=== PATIENT | male | born 1950 | race Caucasian/White ===

== ENCOUNTER → 2023-05-27 07:58 | Outpatient (REF) | payer MEDICARE, BC, SELFPAY ==
[2023-05-27 14:09] LABS: TSH 2.55 uIU/ml (0.47-4.68)
[2023-05-27 14:16] LABS: ALT (SGPT) 24 U/L (0-50); AST (SGOT) 23 U/L (17-59); Albumin 4.1 g/dl (3.5-5.0); Alkaline Phosphatase 84 U/L (38-126); Blood Urea Nitrogen 34 mg/dl (9-20); Calcium 9.7 mg/dl (8.4-10.2); Carbon Dioxide 26 mmol/L (22-30); Chloride 104 mmol/L (98-107); Glucose 179 mg/dl (70-99); HDL Cholesterol 53 mg/dl; LDL Cholesterol, Calculated 70 mg/dl; Potassium 4.6 mmol/L (3.5-5.1); Sodium 136 mmol/L (135-145); Total Bilirubin 1.6 mg/dl (0.2-1.3); Total Cholesterol 142 mg/dl (50-199); Total Protein 6.7 g/dl (6.3-8.2); Triglyceride 99 mg/dl (10-149); Very Low Density Lipoprotein 19 mg/dl (0-30); eGFR > 60.00
[2023-05-27 14:17] LABS: Glycohemoglobin (HgbA1c) 7.6 % (4.0-5.6)
[2023-05-27 21:04] LABS: Microalbumin, Random Urine 44.7 mg/dl (0.6-1.7); Microalbumin/creatinine Ratio 558.1 mg/g
== END ==
LOC: HWLAB 07:58
PROVIDERS: ATTENDING PHYSICIAN Internal Medicine Endocrinology, Diabetes & Metabolism; FAMILY PHYSICIAN Internal Medicine
DX: E10.65 Type 1 diabetes mellitus with hyperglycemia (principal)
CPT/HCPCS: 36415; 80053; 80061; 82043; 82570; 83036; 84443

== ENCOUNTER → 2023-08-31 07:39 | Outpatient (REF) | payer MEDICARE, BC, SELFPAY ==
[2023-08-31 09:34] LABS: ALT (SGPT) 24 U/L (0-50); AST (SGOT) 26 U/L (17-59); Albumin 4.2 g/dl (3.5-5.0); Alkaline Phosphatase 85 U/L (38-126); Blood Urea Nitrogen 38 mg/dl (9-20); Carbon Dioxide 22 mmol/L (22-30); Chloride 106 mmol/L (98-107); Glucose 196 mg/dl (70-99); HDL Cholesterol 45 mg/dl; LDL Cholesterol, Calculated 67 mg/dl; Potassium 4.5 mmol/L (3.5-5.1); Sodium 137 mmol/L (135-145); Total Bilirubin 1.4 mg/dl (0.2-1.3); Total Cholesterol 135 mg/dl (50-199); Total Protein 6.6 g/dl (6.3-8.2); Triglyceride 119 mg/dl (10-149); Very Low Density Lipoprotein 23 mg/dl (0-30); eGFR 53.07
[2023-08-31 11:06] LABS: Glycohemoglobin (HgbA1c) 7.4 % (4.0-5.6)
[2023-09-03 02:09] LABS: C-Peptide <0.1 ng/mL (0.5-3.3)
== END ==
LOC: REG 07:39
PROVIDERS: ATTENDING PHYSICIAN Internal Medicine Endocrinology, Diabetes & Metabolism; FAMILY PHYSICIAN Internal Medicine
DX: E10.65 Type 1 diabetes mellitus with hyperglycemia (principal); E78.5 Hyperlipidemia, unspecified
CPT/HCPCS: 36415; 80053; 80061; 83036; 84681

== ENCOUNTER → 2023-11-27 08:58 | Outpatient (REF) | payer MEDICARE, BC, SELFPAY ==
[2023-11-27 13:51] LABS: ALT (SGPT) 23 U/L (0-50); AST (SGOT) 24 U/L (17-59); Albumin 4.1 g/dl (3.5-5.0); Alkaline Phosphatase 67 U/L (38-126); Blood Urea Nitrogen 34 mg/dl (9-20); Calcium 9.8 mg/dl (8.4-10.2); Carbon Dioxide 25 mmol/L (22-30); Chloride 106 mmol/L (98-107); Glucose 107 mg/dl (70-99); HDL Cholesterol 58 mg/dl; LDL Cholesterol, Calculated 75 mg/dl; Potassium 4.5 mmol/L (3.5-5.1); Sodium 142 mmol/L (135-145); Total Bilirubin 1.6 mg/dl (0.2-1.3); Total Cholesterol 145 mg/dl (50-199); Total Protein 6.6 g/dl (6.3-8.2); Triglyceride 64 mg/dl (10-149); Very Low Density Lipoprotein 12 mg/dl (0-30); eGFR 58.01
[2023-11-27 14:05] LABS: Glycohemoglobin (HgbA1c) 6.7 % (4.0-5.6)
== END ==
LOC: HWLAB 08:58
PROVIDERS: ATTENDING PHYSICIAN Internal Medicine Endocrinology, Diabetes & Metabolism; FAMILY PHYSICIAN Internal Medicine
DX: E10.65 Type 1 diabetes mellitus with hyperglycemia (principal)
CPT/HCPCS: 36415; 80053; 80061; 83036

== ENCOUNTER → 2024-02-28 07:44 | Outpatient (REF) | payer MEDICARE, BC, SELFPAY ==
[2024-02-28 11:00] LABS: ALT (SGPT) 27 U/L (0-50); AST (SGOT) 27 U/L (17-59); Albumin 4.4 g/dl (3.5-5.0); Alkaline Phosphatase 75 U/L (38-126); Blood Urea Nitrogen 39 mg/dl (9-20); Calcium 9.9 mg/dl (8.4-10.2); Carbon Dioxide 24 mmol/L (22-30); Chloride 105 mmol/L (98-107); Glucose 86 mg/dl (70-99); HDL Cholesterol 56 mg/dl; LDL Cholesterol, Calculated 74 mg/dl; Potassium 4.4 mmol/L (3.5-5.1); Sodium 139 mmol/L (135-145); Total Bilirubin 1.4 mg/dl (0.2-1.3); Total Cholesterol 145 mg/dl (50-199); Triglyceride 77 mg/dl (10-149); Very Low Density Lipoprotein 15 mg/dl (0-30); eGFR 48.85
[2024-02-28 11:32] LABS: Glycohemoglobin (HgbA1c) 6.7 % (4.0-5.6)
== END ==
LOC: HWLAB 07:44
PROVIDERS: ATTENDING PHYSICIAN Internal Medicine Endocrinology, Diabetes & Metabolism; FAMILY PHYSICIAN Internal Medicine
DX: E10.65 Type 1 diabetes mellitus with hyperglycemia (principal)
CPT/HCPCS: 36415; 80053; 80061; 83036

== ENCOUNTER → 2024-05-25 08:20 | Outpatient (REF) | payer MEDICARE, BC, SELFPAY ==
[2024-05-25 11:29] LABS: % Basophils 1.4 % (0-2); % Eosinophils 6.4 % (0-6); % Immature Granulocytes 0.2 % (0-0.5); % Lymphocytes 23.4 % (20.5-51.1); % Neutrophils 57.6 % (42.2-75.2); Absolute Basophils 0.1 10^3/uL (0-0.2); Absolute Eosinophils 0.3 10^3/uL (0-0.7); Absolute Lymphocytes 1.2 10^3/uL (1.2-3.4); Absolute Monocytes 0.6 10^3/uL (0.1-0.6); Absolute Neutrophils 2.9 10^3/uL (1.4-6.5); Hemoglobin 13.2 g/dL (13.0-18.0); Mean Corp Hgb Conc. 35.7 g/dL (33.0-37.0); Mean Corpuscular Hgb 33.2 pg (27.0-31.0); Nucleated Red Blood Cells % 0 % (-); Platelet Count 150 10^3/uL (130-400); Red Blood Cell Count 3.98 10^6/uL (4.70-6.10); Red Cell Dist. Width 12.3 % (11.5-14.5)
[2024-05-25 11:41] LABS: ALT (SGPT) 23 U/L (0-50); AST (SGOT) 23 U/L (17-59); Albumin 4.3 g/dl (3.5-5.0); Alkaline Phosphatase 71 U/L (38-126); Blood Urea Nitrogen 46 mg/dl (9-20); Calcium 9.6 mg/dl (8.4-10.2); Carbon Dioxide 22 mmol/L (22-30); Chloride 110 mmol/L (98-107); Glucose 158 mg/dl (70-99); Potassium 4.8 mmol/L (3.5-5.1); Sodium 141 mmol/L (135-145); Total Bilirubin 1.5 mg/dl (0.2-1.3); Total Protein 6.5 g/dl (6.3-8.2); eGFR 57.65
[2024-05-25 11:49] LABS: Microalbumin, Random Urine 9.5 mg/dl (0.6-1.7); Microalbumin/creatinine Ratio 103.9 mg/g
[2024-05-25 11:56] LABS: Glycohemoglobin (HgbA1c) 6.7 % (4.0-5.6)
[2024-05-25 12:05] LABS: TSH 2.09 uIU/ml (0.47-4.68)
== END ==
LOC: HWLAB 08:20
PROVIDERS: ATTENDING PHYSICIAN Internal Medicine Endocrinology, Diabetes & Metabolism; FAMILY PHYSICIAN Physician Assistant
DX: I10 Essential (primary) hypertension (principal); E10.3293 Type 1 diabetes mellitus with mild nonproliferative diabetic retinopathy without macular edema, bilateral; Z12.5 Encounter for screening for malignant neoplasm of prostate; N18.31 Chronic kidney disease, stage 3a; E10.65 Type 1 diabetes mellitus with hyperglycemia
CPT/HCPCS: 36415; 80053; 82043; 82570; 83036; 84443; 85025; G0103

== ENCOUNTER → 2024-08-25 08:19 | Outpatient (REF) | payer MEDICARE, BC, SELFPAY ==
[2024-08-25 10:07] LABS: ALT (SGPT) 23 U/L (0-50); AST (SGOT) 23 U/L (17-59); Albumin 4.1 g/dl (3.5-5.0); Alkaline Phosphatase 63 U/L (38-126); Blood Urea Nitrogen 46 mg/dl (9-20); Calcium 9.5 mg/dl (8.4-10.2); Carbon Dioxide 23 mmol/L (22-30); Chloride 111 mmol/L (98-107); Glucose 124 mg/dl (70-99); HDL Cholesterol 45 mg/dl; LDL Cholesterol, Calculated 73 mg/dl; Potassium 4.6 mmol/L (3.5-5.1); Sodium 141 mmol/L (135-145); Total Protein 6.7 g/dl (6.3-8.2); Very Low Density Lipoprotein 16 mg/dl (0-30); eGFR 41.78
[2024-08-25 10:19] LABS: Glycohemoglobin (HgbA1c) 6.8 % (4.0-5.6)
== END ==
LOC: HWLAB 08:19
PROVIDERS: ATTENDING PHYSICIAN Internal Medicine Endocrinology, Diabetes & Metabolism; FAMILY PHYSICIAN Internal Medicine
DX: E10.65 Type 1 diabetes mellitus with hyperglycemia (principal)
CPT/HCPCS: 36415; 80053; 80061; 83036

== ENCOUNTER → 2024-11-28 08:38 | Outpatient (REF) | payer MEDICARE, BC, SELFPAY ==
[2024-11-28 10:08] LABS: ALT (SGPT) 27 U/L (0-50); AST (SGOT) 24 U/L (17-59); Albumin 4.1 g/dl (3.5-5.0); Alkaline Phosphatase 70 U/L (38-126); Blood Urea Nitrogen 46 mg/dl (9-20); Calcium 9.7 mg/dl (8.4-10.2); Carbon Dioxide 23 mmol/L (22-30); Chloride 111 mmol/L (98-107); Glucose 95 mg/dl (70-99); HDL Cholesterol 48 mg/dl; LDL Cholesterol, Calculated 84 mg/dl; Potassium 4.7 mmol/L (3.5-5.1); Sodium 139 mmol/L (135-145); Total Protein 6.9 g/dl (6.3-8.2); Very Low Density Lipoprotein 14 mg/dl (0-30); eGFR 48.55
[2024-11-28 10:33] LABS: Microalb - Urine Creatinine 79.100 mg/dl
[2024-11-28 10:37] LABS: TSH 2.47 uIU/ml (0.47-4.68)
[2024-11-28 10:38] LABS: Microalbumin, Random Urine 9.4 mg/dl (0.6-1.7)
[2024-11-28 12:20] LABS: Glycohemoglobin (HgbA1c) 7.1 % (4.0-5.6)
== END ==
LOC: REG 08:38
PROVIDERS: ATTENDING PHYSICIAN Internal Medicine Endocrinology, Diabetes & Metabolism; FAMILY PHYSICIAN Internal Medicine
DX: E10.9 Type 1 diabetes mellitus without complications (principal)
CPT/HCPCS: 36415; 80053; 80061; 82043; 82570; 83036; 84443